=== PATIENT | male | born 1955 | race Caucasian/White ===

== ENCOUNTER 2023-08-08 10:06 | Inpatient (IN) ==
[2023-08-08 10:29] LABS: HEMATOCRIT 39.1 % (42.0-52.0); IMMATURE GRANULOCYTE # (AUTO) 0.2 (0.0-1.0); IMMATURE GRANULOCYTE % (AUTO) 0.8 % (0.0-5.0); LYMPHOCYTES # (AUTO) 0.6 K/uL (0.60-3.4); LYMPHOCYTES % (AUTO) 2.8 (10.0-50.0); MEAN CORPUSCULAR HGB CONC 33.2 (31.8-35.4); MEAN CORPUSCULAR VOLUME 90.3 fl (80.0-94.0); MONOCYTES % (AUTO) 4.6 (0-10); NEUTROPHILS # (AUTO) 19.2 K/ul (2.0-6.9); NEUTROPHILS % (AUTO) 91.8 % (42.2-75.2); PLATELET COUNT 195 10^3/uL (140-440); RDW COEFFICIENT OF VARIATION 14.3 % (11.6-14.8); RED BLOOD COUNT 4.33 10^6/ul (4.70-6.10); WHITE BLOOD COUNT 20.91 K/ul (4.2-10.2)
--- NOTE | 2023-08-08 10:33 | ED.PDOC ---
General ED Provider: Dr. KARLA YIN DO Chief Complaint: Weakness Stated Complaint: Patient is a 68 yo M here for family concern for stroke. Patient arrives tachycardic rate 105, with stable blood pressure 136/77 Accucheck 191 Last known normal 48 hours ago. and son report father had 3 vessel cardiac bypass and BL [facility] [place], Since then he has been less active physically and mentally He can usually perform ADLS well 2 days ago he was speaking to people at [employer] and not making sense, yesterday her was driving on the wrong side of the road, he drive to their house on the grass instead of using the driveway. No falls or injuries No new medications He is on dual antipaltelet, no anticoagulation No sick contacts They report he has been complaining or trouble peeing and has a cough He is a non smoker Patient alert and oriented x4 Following commands, holding conversation well, GCS 15 Family reports they would ad brought him sooner but patient was stubborn and declined Patient convinced to come in because today he felt too weak to get out of bed We helped patient into the bed he was able to pivot well. Time Seen by Provider: 08/08/23 10:10 Information Source: Patient Primary Care Provider: IGNACIA TOVAR Nursing and Triage Documentation Reviewed and Agree: Yes What is Opioid Naive?: *Opioid Naive implies the patient is not already taking opioids or not chronically receiving opioids on a daily basis. *PRN dosing is not "usually" associated with tolerance. *Patients are at higher risk of over-sedation and aspiration. What is Opioid Tolerant?: *Opioid Tolerance implies less than the expected response to an opioid. *Acquired tolerance is defined by the patient taking 60mg of oral morphine daily (or equianalgesic dose of another opioid) for 1 week or more. *Often associated with chronic pain. *May take more than usual dose to achieve desired pain control. Review of Systems Review Of Systems Constitutional: Reports Weakness; Denies Chills or Fever Eyes: Denies Blindness or Vision change Ears, Nose, Mouth, Throat: Denies Ear pain, Nose pain or Throat pain Respiratory: Reports Cough; Denies Stridor or Wheezing Cardiac: Denies Palpitations or Syncope GI: Denies Constipated or Diarrhea : Denies Burning or Discharge Musculoskeletal: Denies Back pain or Muscle pain Skin: Denies Bruising or Rash Neurological: Reports Weakness; Denies Anxiety, Depressed, Headache, Numbness or Tingling Endocrine: Reports No symptoms Hematologic/Lymphatic: Reports No symptoms All Other Systems: Reviewed and Negative Physical Exam Physical Exam Appearance: Reports Well-appearing and Well-nourished Ill-appearing: Not Applicable Pain Distress: Not Applicable Eyes: Reports HELDER and EOMI ENT: Reports Ears normal, Nose normal and Oropharynx normal Neck: Supple Respiratory: Reports Airway patent and Breath sounds clear; Denies Crackles or Rhonchi Cardiovascular: Reports RRR and Pulses normal GI/: Reports Soft and Nontender Musculoskeletal: Reports Normal strength and ROM intact Skin: Reports Warm and Dry Neurological: Reports Sensation intact, Motor intact, Cranial nerves intact, Alert and Oriented; Denies CN Palsy Psychiatric: Reports Affect appropriate and Mood appropriate Interpretation EKG Interpretation EKG Interpretation By: ED Physician Time of EKG #1: 11:20 Interpretation: Sinus tachycardai rate 106 no stemi qrs wnl Course Course 08/08/23 10:15 08/08/23 10:15 Orders, Labs, Meds: Lab Review 08/08/23 08/08/23 08/08/23 10:15 10:35 10:48 WBC 20.91 H RBC 4.33 L Hgb 13.0 L Hct 39.1 L MCV 90.3 MCH 30.0 MCHC 33.2 RDW Coeff of Caroline 14.3 Plt Count 195 Immature Gran % (Auto) 0.8 Neut % (Auto) 91.8 H Lymph % (Auto) 2.8 L Buchanan % (Auto) 4.6 Eos % (Auto) 0.0 Baso % (Auto) 0.0 Neut # (Auto) 19.2 H Lymph # (Auto) 0.6 Buchanan # (Auto) 1.0 Eos # (Auto) 0.0 Baso # (Auto) 0.0 Immature Gran # (Auto) 0.2 Puncture Site Rrad Base Excess -1.8 O2 Saturation 95.5 ABG pH 7.53 H* ABG pCO2 25.0 L ABG pO2 69.0 L ABG HCO3 20.9 L ABG Total CO2 21.7 Neri Test Pos Hemoglobin 1.4 Oxyhemoglobin 93.5 L Carboxyhemoglobin 2.2 H Total Hemoglobin 12.5 FiO2 % 21.0 Sodium 132.2 L Potassium 3.76 Chloride 97.5 L Carbon Dioxide 21.3 L Anion Gap 17.16 BUN 17.3 Creatinine 1.04 Estimated GFR (MDRD) 71.00 BUN/Creatinine Ratio 16.63 Glucose 190.3 H Lactic Acid 2.96 H Calcium 9.31 Magnesium 1.76 Total Bilirubin 1.38 H AST 30.7 ALT 21.5 Alkaline Phosphatase 115.2 Troponin I 0.035 Total Protein 8.20 Albumin 4.34 Globulin 3.86 Albumin/Globulin Ratio 1.12 Lipase 134.9 Procalcitonin 0.38 H Urine Color Yellow Urine Clarity Clear Urine pH 6.5 Ur Specific [place] 1.025 Urine Protein 3+ H Urine Glucose (UA) Negative Urine Ketones 1+ H Urine Blood Negative Urine Nitrite Negative Urine Bilirubin Negative Urine Urobilinogen >=8.0 Ur Leukocyte Esterase Negative Urine Microscopic RBC 2-5 Urine Microscopic WBC 0-2 Ur Squamous Epith Cells Not present Urine Bacteria Trace Fine Granular Casts 0-2 Urine Mucus 4+ Urine Opiates Screen Negative Ur Oxycodone Screen Negative Urine Methadone Screen Negative Ur Barbiturates Screen Negative U Tricyclic Antidepress Negative Ur Phencyclidine Scrn Negative Ur Amphetamine Screen Negative U Methamphetamines Scrn Negative U Benzodiazepines Scrn Negative Urine Cocaine Screen Negative U Cannabinoids Screen Negative Acetone, Qual None Influ A Molecular Assay Negative by naat Influ B Molecular Assay Negative by naat RSV Antigen Negative by naat SARS CoV-2 RNA Rapid LUPIS Negative 08/08/23 11:53 WBC RBC Hgb Hct MCV MCH MCHC RDW Coeff of Caroline Plt Count Immature Gran % (Auto) Neut % (Auto) Lymph % (Auto) Buchanan % (Auto) Eos % (Auto) Baso % (Auto) Neut # (Auto) Lymph # (Auto) Buchanan # (Auto) Eos # (Auto) Baso # (Auto) Immature Gran # (Auto) Puncture Site Base Excess O2 Saturation ABG pH ABG pCO2 ABG pO2 ABG HCO3 ABG Total CO2 Neri Test Hemoglobin Oxyhemoglobin Carboxyhemoglobin Total Hemoglobin FiO2 % Sodium Potassium Chloride Carbon Dioxide Anion Gap BUN Creatinine Estimated GFR (MDRD) BUN/Creatinine Ratio Glucose Lactic Acid Calcium Magnesium Total Bilirubin AST ALT Alkaline Phosphatase Troponin I 0.041 Total Protein Albumin Globulin Albumin/Globulin Ratio Lipase Procalcitonin Urine Color Urine Clarity Urine pH Ur Specific [place] Urine Protein Urine Glucose (UA) Urine Ketones Urine Blood Urine Nitrite Urine Bilirubin Urine Urobilinogen Ur Leukocyte Esterase Urine Microscopic RBC Urine Microscopic WBC Ur Squamous Epith Cells Urine Bacteria Fine Granular Casts Urine Mucus Urine Opiates Screen Ur Oxycodone Screen Urine Methadone Screen Ur Barbiturates Screen U Tricyclic Antidepress Ur Phencyclidine Scrn Ur Amphetamine Screen U Methamphetamines Scrn U Benzodiazepines Scrn Urine Cocaine Screen U Cannabinoids Screen Acetone, Qual Influ A Molecular Assay Influ B Molecular Assay RSV Antigen SARS CoV-2 RNA Rapid LUPIS Orders Category Date Time Status ADMIT PATIENT INPATIENT .TO [facility] (MONITORED BED) ADMISSION 08/08/23 12:31 Completed ABG DRAW REQUEST Stat CARDIO 08/08/23 10:45 Completed EKG-(ED ONLY) Stat CARDIO 08/08/23 10:17 Completed BLADDER SCAN ONCE CARE 08/08/23 10:17 Active NPO REMINDER: IMAGING ONCE CARE 08/08/23 10:16 Completed NPO REMINDER: IMAGING ONCE CARE 08/08/23 10:17 Completed TELEMETRY MONITORING TELE CARE 08/08/23 12:31 Active ABG COOX Stat LAB 08/08/23 10:48 Completed ACETONE, QUALITATIVE Stat LAB 08/08/23 10:15 Completed BLOOD CULTURE Stat LAB 08/08/23 13:32 Received CBC W/ AUTO DIFF Stat LAB 08/08/23 10:15 Completed COMPREHENSIVE METABOLIC PANEL Stat LAB 08/08/23 10:15 Completed DRUG SCREEN (RAPID FOR ED) [DRUG SCREEN, URINE, RAPID] LAB 08/08/23 10:35 Completed Stat FLU A & B MOLECULAR [FLU A/B MOLECULAR] Stat LAB 08/08/23 10:35 Completed LACTIC ACID Stat LAB 08/08/23 10:48 Completed LACTIC ACID Stat LAB 08/08/23 13:32 Received LIPASE Stat LAB 08/08/23 10:15 Completed MAGNESIUM Stat LAB 08/08/23 10:15 Completed PROCALCITONIN Stat LAB 08/08/23 10:15 Completed RSV Stat LAB 08/08/23 10:35 Completed SARS COV-2 RNA RAPID LUPIS Stat LAB 08/08/23 10:35 Completed TROPONIN I Stat LAB 08/08/23 10:15 Completed TROPONIN I Stat LAB 08/08/23 11:53 Completed URINALYSIS C & S IF INDICATED Stat LAB 08/08/23 10:35 Completed Ceftriaxone/D5w 2 gm Premix [Rocephin 2 gm/50 ml D5w] Meds 08/08/23 11:19 Discontinued 2 gm in 50 ml IV ONCE Doxycycline Hyclate Inj [Doxy-100] 100 mg Meds 08/08/23 11:19 Discontinued 0.9 % Sodium Chloride [Sodium Chloride 100Ml] 100 ml IV ONCE Sodium Chloride 0.9% [Sodium Chloride] 1,000 ml Meds 08/08/23 11:[address] CHEST W/CONTRAST Stat RADS 08/08/23 10:[address] HEAD W/O CONTRAST Stat RADS 08/08/23 10:16 Completed CTA ANGIO HEAD Stat RADS 08/08/23 10:16 Completed CTA ANGIO NECK Stat RADS 08/08/23 10:16 Completed Medications Generic Name Dose Route Start Last Admin Trade Name Freq PRN Reason Stop Dose Admin Acetaminophen 650 mg 08/08/23 12:46 Acetaminophen 325 Mg Tablet PO Q4H PRN Mild Pain Albuterol/Ipratropium 3 ml 08/08/23 12:58 Ipratropium/Albuterol Vial.Neb NEB RTQ6H PRN Wheezing Enoxaparin Sodium 40 mg 08/09/23 09:00 Enoxaparin Sodium 40 Mg/0.4 Ml Syr SUBCUT DAILY KELLI Doxycycline Hyclate 100 mg/ 100 mls @ 50 mls/hr 08/08/23 21:00 Sodium Chloride IV 08/11/23 20:59 Q12HR KELLI CEFTRIAXONE/D5W 1 GM PREMIX 1 gm in 50 mls @ 100 mls/hr 08/09/23 09:00 Rocephin 1 Gm/50 Ml D5w IV 08/12/23 08:59 DAILY KELLI Lactated Ringer's 1,000 mls @ 1,000 mls/hr 08/08/23 12:55 Lactated Ringers IV 08/08/23 13:54 BOLUS ONE Lactated Ringer's 1,000 mls @ 500 mls/hr 08/08/23 12:55 Lactated Ringers IV 08/08/23 14:54 BOLUS ONE Lactated Ringer's 1,000 mls @ 83 mls/hr 08/08/23 13:00 Lactated Ringers IV .Q12H3M KELLI Insulin Human Lispro 0 unit 08/08/23 12:46 Insulin Lispro 100 Unit/Ml Vial SUBCUT PRN PRN Hyperglycemia Protocol Discontinued Medications Generic Name Dose Route Start Last Admin Trade Name Freq PRN Reason Stop Dose Admin Sodium Chloride 1,000 mls @ 1,000 mls/hr 08/08/23 11:19 08/08/23 11:46 Sodium Chloride IV 08/08/23 12:18 1,000 mls/hr BOLUS ONE Administration CEFTRIAXONE/D5W 2 GM PREMIX 2 gm in 50 mls @ 100 mls/hr 08/08/23 11:19 08/08/23 11:53 Rocephin 2 Gm/50 Ml D5w IV 08/08/23 11:48 100 mls/hr ONCE ONE Administration Doxycycline Hyclate 100 mg/ 100 mls @ 50 mls/hr 08/08/23 11:19 08/08/23 12:41 Sodium Chloride IV 08/08/23 13:18 50 mls/hr ONCE ONE Administration Lactated Ringer's 1,000 mls @ 100 mls/hr 08/08/23 13:00 Lactated Ringers IV .Q10H KELLI Vital Signs: Temp Pulse Resp BP Pulse Ox 08/08/23 10:07 98.2 F 106 H 18 155/80 H 93 L Patient meets sepsis criteria with tachycardia and leukocytosis gentle fluids due to tachycardai and hypoxia, sepsis bundle ordered ABG shows respiratory alkalosis, chronic MDM: Patient is a 68 yo M here for weakness, cough and family concern for stroke Patient afebrile, mildly hypoxic - improved with 2 L NC, stable blood pressure Hx from patient and family chart review by me Exam reassuring, GCS 15, NIHSS zero Consults to SHILO Gutierrez Hospitalist 3+ labs and 3+ images reviewed by me WDX: Sepsis, LLL pneumonia, cough, hypoxia discomfort acute high complexity DDX: I considered shock, stemi, ICH but these are less likely SDOH: Patient has PCP and family support Patient and family agree to admission All questions answered Patient admitted stable Gentle fluids for sepsis/hypoxia and concner to avoid pulmonary edema Discharge Plan Discharge Patient Disposition: ADMITTED INPATIENT Discharge Problem: Cough, Hypoxia, Sepsis, Left lower lobe pneumonia Did you review [place] [employer] for ALL controlled substances?: Not Applicable ED Provider: KARLA YIN Condition: Stable Physician Progress Note: []
[2023-08-08 10:41] LABS: ALANINE AMINOTRANSFERASE 21.5 U/L (0-50); ALBUMIN 4.34 g/dL (3.5-5.0); ALKALINE PHOSPHATASE 115.2 U/L (56-119); ASPARTATE AMINO TRANSFERASE 30.7 U/L (17-59); BILIRUBIN,TOTAL 1.38 mg/dL (0.2-1.3); BLOOD UREA NITROGEN 17.3 mg/dL (9-20); CALCIUM 9.31 mg/dL (8.4-10.2); CARBON DIOXIDE 21.3 mmol/L (22-30.0); CHLORIDE 97.5 mmol/L (98-107); CREATININE 1.04 mg/dL (0.60-1.10); GLUCOSE 190.3 mg/dL (74-106); LIPASE 134.9 U/L (23-300); MAGNESIUM 1.76 mg/dL (1.6-2.3); POTASSIUM 3.76 mmol/L (3.5-5.1); SODIUM 132.2 mmol/L (134.5-145); TOTAL PROTEIN 8.2 g/dL (6.3-8.2)
--- NOTE | 2023-08-08 10:45 | CT ---
EXAM: BRAIN CT WITHOUT CONTRAST 08/08/2023 INDICATION: Stroke like symptoms. COMPARISON: None. TECHNIQUE: Unenhanced CT of the head was performed from the skull base to the vertex. FINDINGS: No intracranial hemorrhage or extra-axial collection. No mass, mass effect or midline shift. The mock -white matter differentiation is preserved. There are patchy subcortical and periventricular white ma tter hypodensities, most commonly seen in chronic white matter microvascular ischemic changes. The v entricles are normal in size. The basal cisterns are patent. Moderate mucosal membrane thickening t hroughout the paranasal sinuses with the exception of the frontal sinuses. The orbits are unremarkabl e. The visualized osseous structures are unremarkable. IMPRESSION: - No acute intracranial hemorrhage or mass effect. MRI can be obtained for further evaluation as clin ically indicated. - Sinus disease as above. - Senescent changes. All CT scans are performed using dose optimization techniques as appropriate to the performed exam an d include at least one of the following: Automated exposure control, adjustment of the mA and/or kV according t o size, and the use of iterative reconstruction technique.
[2023-08-08 10:52] LABS: TROPONIN I 0.035 ng/ml (0.0000-0.120)
[2023-08-08 11:02] LABS: ABG O2 HGB 93.5 % (95-100); BEecf -1.8 (-2.0-3.0); COHb 2.2 (0.5-1.5); HCO3 20.9 (21-28); MetHb 1.4 (0-1.5); TCO2 21.7 (19-24); sO2 95.5 % (94-98); tHb 12.5 g/dl (11.7-17.4)
[2023-08-08 11:03] LABS: BILIRUBIN,URINE Negative (NEGATIVE); CLARITY,URINE Clear (CLEAR); COLOR,URINE Yellow (YELLOW); GLUCOSE, URINE (UA) Negative (NEGATIVE); KETONES,URINE 1+ (NEGATIVE); LEUKOCYTE ESTERASE ,URINE Negative (NEGATIVE); NITRITE,URINE Negative (NEGATIVE); PH,URINE 6.5 (5-9); PROTEIN,URINE 3+ (NEGATIVE); URINE, BLOOD Negative (NEGATIVE); UROBILINOGEN,URINE >=8.0 (0.2)
[2023-08-08 11:09] LABS: SQUAMOUS EPITHELIAL CELL,UR NOT PRESENT (0-5)
[2023-08-08] MEDS ORDERED: ROCEPHIN 2 GM/50 ML D5W 2 GM/50 ML BAG IV ONE (11:19)
[2023-08-08] MEDS ORDERED: DOXY-100 100 MG in SODIUM CHLORIDE 100ML 100 ML IV ONE (11:19)
[2023-08-08] MEDS ORDERED: SODIUM CHLORIDE 1,000 ML IV ONE (11:19)
[2023-08-08 11:21] LABS: BARBITURATE SCREEN,URINE NEGATIVE (NEGATIVE); OPIATE SCREEN,URINE NEGATIVE (NEGATIVE); PHENCYCLIDINE SCREEN,URINE NEGATIVE (NEGATIVE)
[2023-08-08 11:22] LABS: AMPHETAMINE SCREEN,URINE NEGATIVE (NEGATIVE); BENZODIAZEPINES SCREEN,URINE NEGATIVE (NEGATIVE); CANNABINOID SCREEN,URINE NEGATIVE (NEGATIVE); COCAIN SCREEN,URINE NEGATIVE (NEGATIVE); METHADONE URINE SCREEN NEGATIVE (NEGATIVE); METHAMPHETAMINES SCREEN,URINE NEGATIVE (NEGATIVE); MOLECULAR FLU A NEGATIVE BY NAAT (NEGATIVE); MOLECULAR FLU B NEGATIVE BY NAAT (NEGATIVE); OXYCODONE URINE SCREEN NEGATIVE (NEGATIVE); RSV MOLECULAR NEGATIVE BY NAAT (NEGATIVE); TRICYCLIC ANTIDEPRESSANTS URIN NEGATIVE (NEGATIVE)
[2023-08-08 11:33] LABS: ABG PH 7.53 (7.35-7.45)
[2023-08-08 11:34] LABS: BACTERIA,URINE TRACE (NOT PRESENT); FINE GRANULAR CASTS,URINE 0-2 (NOT PRESENT); URINE WBC, MICROSCOPIC 0-2 (0-2)
[2023-08-08 11:35] LABS: MUCUS,URINE 4+ (NOT PRESENT)
[2023-08-08 11:36] LABS: SARS COV-2 RNA RAPID NAAT NEGATIVE (NEGATIVE)
--- NOTE | 2023-08-08 12:03 | CT ---
EXAM: CTA HEAD WITHOUT/WITH CONTRAST HISTORY: Weakness, confusion, recent CABG and endarterectomy COMPARISON: None TECHNIQUE: Multi-slice pre and postcontrast transaxial helical images are acquired through the head according to an angiogram protocol. 3-D volume images are provided. All CT scans are performed usin g dose optimization techniques as appropriate to the performed exam and includes at least one of the following: Automated exposure control, adjustment of the mA and/or kV according to size, and the use of iterative reconstruction technique. CONTRAST: 100 mL Omnipaque-350 IV FINDINGS: The midline structures are central. The ventricles are neither dilated nor displaced. The brain att enuation with square white master interface is maintained. No acute intracranial or extra-axial hemo rrhage. There are air-fluid levels in the maxillary sinus. There is mucus membrane thickening throughout the paranasal sinuses. The mastoid air cells are clear. The internal carotid arteries are atherosclerotic at their cavernous portions without evidence of hem odynamically significant stenosis. The anterior cerebral arteries are widely patent. The anterior c ommunicating artery is patent. The middle cerebral arteries are patent bilaterally. No large vessel occlusion or hemodynamically significant stenosis. The right vertebral artery is small. The left v ertebral artery is dominant. The basilar artery is small in caliber but patent. Bilateral posterior communicating arteries are noted. The P1 segments of the posterior cerebral arteries are small. Th e P2 segments are patent. The venous structures enhance normally. IMPRESSION: - No large vessel occlusion, dissection or aneurysm. - Paranasal sinus disease. . All CT scans are performed using dose optimization techniques as appropriate to the performed exam an d include at least one of the following: Automated exposure control, adjustment of the mA and/or kV according t o size, and the use of iterative reconstruction technique.
--- NOTE | 2023-08-08 12:04 | CT ---
EXAM: CT CHEST WITH INTRAVENOUS CONTRAST 08/08/2023. SAGITTAL AND CORONAL REFORMATTED IMAGES OBTAINE D HISTORY: Cough and tachycardia COMPARISON: None. FINDINGS: The heart size appears within normal limits. There is abundance of small reactive appearin g mediastinal and left hilar lymph nodes. Consolidation is present throughout the dependent left lower lobe. Multi nodular infiltrate within t he superior aspect of the left lower lobe. This likely represents pneumonia. Mild right basilar ate lectasis. Right lung is otherwise well aerated. No pleural effusion. No pneumothorax. Limited views of the upper abdomen shows no acute abnormality . No acute osseous abnormality. IMPRESSION: Findings suggestive of left lower lobe pneumonia as described above. Abundance of small reactive appearing mediastinal and left hilar lymph nodes. Follow-up would be of benefit to document resolution. All CT scans are performed using dose optimization techniques as appropriate to the performed exam an d include at least one of the following: Automated exposure control, adjustment of the mA and/or kV according t o size, and the use of iterative reconstruction technique.
--- NOTE | 2023-08-08 12:07 | CT ---
EXAM: CTA NECK WITHOUT/WITH CONTRAST HISTORY: Stroke like symptoms COMPARISON: None TECHNIQUE: Multi-slice pre and postcontrast transaxial helical images are acquired through the neck according to an angiogram protocol. 3-D volume images are provided. All CT scans are performed usin g dose optimization techniques as appropriate to the performed exam and includes at least one of the following: Automated exposure control, adjustment of the mA and/or kV according to size, and the use of iterative reconstruction technique. CONTRAST: 100 mL Omnipaque-350 IV FINDINGS: Wire sternal sutures and post CABG changes are noted. The aortic arch has normal caliber and patency . The brachycephalic and subclavian arteries are patent. There is mild disease in the bilateral sub clavian arteries and brachycephalic artery. The bilateral common carotid arteries are widely patent. There are surgical clips in the bilateral carotid arteries. The internal carotid arteries are alvarez nt bilaterally. The left vertebral artery is dominant. Both vertebral arteries are patent without e vidence of hemodynamically significant stenosis. There are tree in bud infiltrates in the left lower lobe. The lungs are emphysematous. A calcified granuloma is noted in the left upper lobe. The thyroid has normal size and attenuation. The submand ibular glands and parotid glands have symmetric size and normal enhancement. No suspicious lymphaden opathy. The mucosa of the aerodigestive tract is symmetric. No suspicious osteolytic or osteoblastic bone lesions. No acute bony abnormalities are evident. IMPRESSION: - No large vessel occlusion or hemodynamically significant stenosis. - Bilateral carotid endarterectomies. - Left lower lobe pneumonia. - Emphysema. . All CT scans are performed using dose optimization techniques as appropriate to the performed exam an d include at least one of the following: Automated exposure control, adjustment of the mA and/or kV according t o size, and the use of iterative reconstruction technique.
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
[2023-08-08] MEDS ORDERED: TYLENOL PO PRN (12:46)
[2023-08-08] MEDS ORDERED: HUMALOG SUBCUT PRN (12:46)
[2023-08-08] MEDS ORDERED: LACTATED RINGERS 1,000 ML IV ONE ×2 (12:55)
[2023-08-08] MEDS ORDERED: DUONEB NEB PRN (12:58)
[2023-08-08] MEDS ORDERED: LACTATED RINGERS 1,000 ML IV SCH (13:00)
[2023-08-08 14:55] VITALS: BMI 30.1
[2023-08-08] MEDS ORDERED: NITROSTAT SL PRN (16:37)
[2023-08-08] MEDS: TIMOPTIC 0.5% OPTH EACHEYE SCH (20:03)
[2023-08-08] MEDS: DOXY-100 100 MG in SODIUM CHLORIDE 100ML 100 ML IV SCH (20:03)
[2023-08-08] MEDS: LOPRESSOR PO SCH (20:03)
[2023-08-08] MEDS: LACTATED RINGERS 1,000 ML IV SCH (20:19)
[2023-08-09 05:51] LABS: BASOPHILS % (AUTO) 0.1 % (0.0-3.0); EOSINOPHILS % (AUTO) 0.2 % (0.0-7.0); HEMATOCRIT 34.7 % (42.0-52.0); HEMOGLOBIN 11.5 g/dl (14.0-18.0); IMMATURE GRANULOCYTE # (AUTO) 0.1 (0.0-1.0); IMMATURE GRANULOCYTE % (AUTO) 0.5 % (0.0-5.0); LYMPHOCYTES # (AUTO) 0.9 K/uL (0.60-3.4); LYMPHOCYTES % (AUTO) 9.9 (10.0-50.0); MEAN CORPUSCULAR HEMOGLOBIN 29.9 pg (27.0-31.0); MEAN CORPUSCULAR HGB CONC 33.1 (31.8-35.4); MEAN CORPUSCULAR VOLUME 90.4 fl (80.0-94.0); MONOCYTES # (AUTO) 0.7 K/uL (0.4-2.0); MONOCYTES % (AUTO) 7.7 (0-10); NEUTROPHILS # (AUTO) 7.5 K/ul (2.0-6.9); NEUTROPHILS % (AUTO) 81.6 % (42.2-75.2); PLATELET COUNT 152 10^3/uL (140-440); RDW COEFFICIENT OF VARIATION 14.4 % (11.6-14.8); RED BLOOD COUNT 3.84 10^6/ul (4.70-6.10); WHITE BLOOD COUNT 9.23 K/ul (4.2-10.2)
[2023-08-09 06:09] LABS: ALANINE AMINOTRANSFERASE 17.5 U/L (0-50); ALBUMIN 3.33 g/dL (3.5-5.0); ALKALINE PHOSPHATASE 76.4 U/L (56-119); ASPARTATE AMINO TRANSFERASE 24.2 U/L (17-59); BILIRUBIN,TOTAL 0.71 mg/dL (0.2-1.3); BLOOD UREA NITROGEN 12.3 mg/dL (9-20); CALCIUM 8.47 mg/dL (8.4-10.2); CARBON DIOXIDE 25.1 mmol/L (22-30.0); CHLORIDE 102.7 mmol/L (98-107); CREATININE 0.79 mg/dL (0.60-1.10); GLUCOSE 118.8 mg/dL (74-106); POTASSIUM 3.2 mmol/L (3.5-5.1); SODIUM 135.2 mmol/L (134.5-145); TOTAL PROTEIN 6.63 g/dL (6.3-8.2)
[2023-08-09] MEDS: ROCEPHIN 1 GM/50 ML D5W 1 GM/50 ML BAG IV SCH (08:17)
[2023-08-09] MEDS: ASPIRIN EC PO SCH (08:18)
[2023-08-09] MEDS: LOVENOX SUBCUT SCH (08:18)
[2023-08-09] MEDS: LOPRESSOR PO SCH ×2 (08:18→20:10)
[2023-08-09] MEDS: LIPITOR PO SCH (08:18)
[2023-08-09] MEDS: PLAVIX PO SCH (08:18)
[2023-08-09] MEDS: TIMOPTIC 0.5% OPTH EACHEYE SCH ×3 (08:43→20:10)
[2023-08-09] MEDS ORDERED: XALATAN EACHEYE SCH (09:00)
[2023-08-09] MEDS: DOXY-100 100 MG in SODIUM CHLORIDE 100ML 100 ML IV SCH ×2 (09:30→20:10)
[2023-08-09] MEDS: LACTATED RINGERS 1,000 ML IV SCH (09:30)
--- NOTE | 2023-08-09 11:38 | PCM.PROG ---
Date/Time Seen Date Seen by Provider: 08/09/23 Time Seen by Provider: 08:30 Provider Provider: TAMMY MCKEON PA-C, [facility] Chief Complaint Chief Complaint: LLL PNA, SEPSIS Subjective Subjective: Son at bedside. Patient states he's feeling better. Still requiring oxygen. States he normally wears a CPAP at night. Has less sob with exertion today. Labs improving. Objective Appearance: Positive No Apparent Distress and Alert and Oriented x3 Chest/Lungs: Positive Clear to Auscultation Bilaterally; Negative Rales, Rhonci or Wheezes Heart: Positive RRR GI/: Positive Soft, Nontender, Bowel Sounds Normal and No Distention Neurological: Positive Cranial Nerves Intact, Alert, Oriented and Muscle Strength 5/5 in Upper and Lower Extremities Bilaterally Vital Signs Vital Signs: Vital Signs: Last 24 Hours 08/08/23 13:49 08/08/23 13:49 08/08/23 14:15 Temperature 99.9 F Temperature Source Oral Pulse Rate 104 H Respiratory Rate 22 H 22 H Blood Pressure Blood Pressure Mean Blood Pressure Right Arm 141/84 Blood Pressure Location Blood Pressure Position Supine O2 Sat by Pulse Oximetry 95 Oxygen Delivery Method Room Air Room Air Oxygen Flow Rate 95 Height 5 ft 5.5 in Weight 183 lb 14.4 oz Telemetry Type Remote Telemetry Telemetry Monitoring Started Telemetry Heart Rate 105 H Telemetry SPO2 96 EKG TX Interval 0.14 EKG QRS Interval 0.06 EKG QT Interval Telemetry Strip Reading SR/ST 08/08/23 15:07 08/08/23 18:00 08/08/23 19:00 Temperature 98.2 F Temperature Source Oral Pulse Rate 103 H Respiratory Rate 22 H Blood Pressure 154/79 H Blood Pressure Mean 104 Blood Pressure Right Arm Blood Pressure Location Right Arm Blood Pressure Position Supine O2 Sat by Pulse Oximetry 96 96 Oxygen Delivery Method Room Air Room Air Oxygen Flow Rate Height Weight Telemetry Type Remote Telemetry Telemetry Monitoring Continues Telemetry Heart Rate 99 Telemetry SPO2 97 EKG TX Interval 0.14 EKG QRS Interval 0.07 EKG QT Interval Telemetry Strip Reading SR 08/08/23 19:52 08/08/23 20:00 08/08/23 21:28 Temperature 98.7 F Temperature Source Oral Pulse Rate 89 Respiratory Rate 20 Blood Pressure 143/75 H Blood Pressure Mean 97 Blood Pressure Right Arm Blood Pressure Location Left Arm Blood Pressure Position Supine O2 Sat by Pulse Oximetry 97 95 Oxygen Delivery Method Room Air Room Air Room Air Oxygen Flow Rate Height Weight Telemetry Type Telemetry Monitoring Telemetry Heart Rate Telemetry SPO2 EKG TX Interval EKG QRS Interval EKG QT Interval Telemetry Strip Reading 08/09/23 01:00 08/09/23 05:08 08/09/23 05:23 Temperature 98.1 F Temperature Source Oral Pulse Rate 90 Respiratory Rate Blood Pressure 140/81 Blood Pressure Mean 100 Blood Pressure Right Arm Blood Pressure Location Right Arm Blood Pressure Position Supine O2 Sat by Pulse Oximetry 98 97 Oxygen Delivery Method Nasal Cannula Nasal Cannula Oxygen Flow Rate 2 2 Height Weight Telemetry Type Remote Telemetry Telemetry Monitoring Continues Telemetry Heart Rate 92 Telemetry SPO2 97 EKG TX Interval 0.15 EKG QRS Interval EKG QT Interval 0.08 L Telemetry Strip Reading NSR 08/09/23 07:00 08/09/23 07:37 08/09/23 09:55 Temperature Temperature Source Pulse Rate Respiratory Rate Blood Pressure Blood Pressure Mean Blood Pressure Right Arm Blood Pressure Location Blood Pressure Position O2 Sat by Pulse Oximetry 98 Oxygen Delivery Method Nasal Cannula Oxygen Flow Rate 2 Height 5 ft 5.5 in Weight 183 lb Telemetry Type Remote Telemetry Telemetry Monitoring Continues Telemetry Heart Rate 81 Telemetry SPO2 EKG TX Interval EKG QRS Interval EKG QT Interval Telemetry Strip Reading sr 08/09/23 10:15 Temperature Temperature Source Pulse Rate Respiratory Rate Blood Pressure Blood Pressure Mean Blood Pressure Right Arm Blood Pressure Location Blood Pressure Position O2 Sat by Pulse Oximetry 97 Oxygen Delivery Method Nasal Cannula Oxygen Flow Rate 1 Height Weight Telemetry Type Telemetry Monitoring Telemetry Heart Rate Telemetry SPO2 EKG TX Interval EKG QRS Interval EKG QT Interval Telemetry Strip Reading Lab Results Lab Results: Lab Results: Last 24 Hours 08/09/23 08/08/23 08/08/23 05:29 13:32 11:53 WBC 9.23 D RBC 3.84 L Hgb 11.5 L Hct 34.7 L MCV 90.4 MCH 29.9 MCHC 33.1 RDW Coeff of Caroline 14.4 Plt Count 152 Immature Gran % (Auto) 0.5 Neut % (Auto) 81.6 H Lymph % (Auto) 9.9 L [place] % (Auto) 7.7 Eos % (Auto) 0.2 Baso % (Auto) 0.1 Neut # (Auto) 7.5 H Lymph # (Auto) 0.9 [place] # (Auto) 0.7 Eos # (Auto) 0.0 Baso # (Auto) 0.0 Immature Gran # (Auto) 0.1 Sodium 135.2 Potassium 3.20 L Chloride 102.7 Carbon Dioxide 25.1 Anion Gap 10.60 BUN 12.3 Creatinine 0.79 Estimated GFR (MDRD) 97.00 BUN/Creatinine Ratio 15.56 Glucose 118.8 H D Lactic Acid 1.80 Calcium 8.47 Total Bilirubin 0.71 AST 24.2 ALT 17.5 Alkaline Phosphatase 76.4 D Troponin I 0.041 Total Protein 6.63 Albumin 3.33 L Globulin 3.30 Albumin/Globulin Ratio 1.00 Procalcitonin 0.32 H SARS CoV-2 RNA Rapid LUPIS 08/08/23 08/08/23 10:35 10:15 WBC RBC Hgb Hct MCV MCH MCHC RDW Coeff of Caroline Plt Count Immature Gran % (Auto) Neut % (Auto) Lymph % (Auto) [place] % (Auto) Eos % (Auto) Baso % (Auto) Neut # (Auto) Lymph # (Auto) [place] # (Auto) Eos # (Auto) Baso # (Auto) Immature Gran # (Auto) Sodium Potassium Chloride Carbon Dioxide Anion Gap BUN Creatinine Estimated GFR (MDRD) BUN/Creatinine Ratio Glucose Lactic Acid Calcium Total Bilirubin AST ALT Alkaline Phosphatase Troponin I Total Protein Albumin Globulin Albumin/Globulin Ratio Procalcitonin 0.38 H SARS CoV-2 RNA Rapid LUPIS Negative Additional Comments Additional Comments: I have independently reviewed and interpreted the labs/EKGs/imaging ordered during this hospital stay. I have reviewed outside records that are available in our EMR that pertain to medical stay including imaging/notes/labs from previous visits. Active Medications Active Medications: Medications Generic Name Dose Route Start Last Admin Trade Name Freq PRN Reason Stop Dose Admin Acetaminophen 650 mg 08/08/23 12:46 Acetaminophen 325 Mg Tablet PO Q4H PRN Mild Pain Albuterol/Ipratropium 3 ml 08/08/23 12:58 Ipratropium/Albuterol Vial.Neb NEB RTQ6H PRN Wheezing Aspirin 81 mg 08/09/23 07:30 08/09/23 08:18 Aspirin 81 Mg Tablet. PO 81 mg DAILYWM2 KELLI Administration Atorvastatin Calcium 40 mg 08/09/23 09:00 08/09/23 08:18 Atorvastatin Calcium 20 Mg Tablet PO 40 mg DAILY KELLI Administration Clopidogrel Bisulfate 75 mg 08/09/23 09:00 08/09/23 08:18 Clopidogrel Bisulfate 75 Mg Tablet PO 75 mg DAILY KELLI Administration Enoxaparin Sodium 40 mg 08/09/23 09:00 08/09/23 08:18 Enoxaparin Sodium 40 Mg/0.4 Ml Syr SUBCUT 40 mg DAILY KELLI Administration Doxycycline Hyclate 100 mg/ 100 mls @ 50 mls/hr 08/08/23 21:00 08/09/23 09:30 Sodium Chloride IV 08/11/23 20:59 50 mls/hr Q12HR KELLI Administration CEFTRIAXONE/D5W 1 GM PREMIX 1 gm in 50 mls @ 100 mls/hr 08/09/23 09:00 08/09/23 08:17 Rocephin 1 Gm/50 Ml D5w IV 08/12/23 08:59 100 mls/hr DAILY KELLI Administration Lactated Ringer's 1,000 mls @ 83 mls/hr 08/08/23 13:00 08/09/23 09:30 Lactated Ringers IV 83 mls/hr .Q12H3M KELLI Administration Insulin Human Lispro 0 unit 08/08/23 12:46 Insulin Lispro 100 Unit/Ml Vial SUBCUT PRN PRN Hyperglycemia Protocol Latanoprost 1 drop 08/10/23 21:00 Latanoprost 2.5 Ml Opth Marissa EACHEYE BEDTIME [facility] Metoprolol Tartrate 50 mg 08/08/23 21:00 08/09/23 08:18 Metoprolol Tartrate 50 Mg Tablet PO 50 mg BID KELLI Administration Nitroglycerin 0.4 mg 08/08/23 16:37 Nitroglycerin 0.4 Mg Tab.Subl SL Q5M PRN Chest Pain Timolol Maleate 1 drop 08/08/23 21:00 08/09/23 08:43 Timolol Maleate 5 Ml Opth Marissa EACHEYE Not Given BID [facility] Plan Plan: 1. Acute metabolic encephalopathy in setting of LLL pneumonia - Improved. Cont abx, stop fluids, tylenol prn for pain/fever. CT head and CTA head/neck negative. 2. Left sided pneumonia, community acquired - Rocephin + doxy. Duonebs. O2 prn. Strep pneumo and legionella pending. MRSA pending. 3. Sepsis in setting of pneumonia - Labs improved. BC pending. Trend procal. Cont abx. 4. CAD s/p CABG - No hx of HF. Cont home meds. Monitor for fluid overload. 5. DMT2 - Hold metformin. Humalog SS ordered. Diabetic diet. 6. Hyperlipidemia - Cont home meds 7. Glaucoma - Cont home eye drops 8. Hypokalemia - Replaced 9. LINDA - Sleeps with CPAP at night. Notified RT to provide CPAP if cannot bring his in. DVT Prophylaxis: Lovenox Dispo: Poss dc tomorrow. Review Statement Review Statement: I have personally discussed and reviewed the patient's visit/currently labs/imaging/decision making with Dr. Cantrell, my supervising attending. Greater that 50 minutes spent with patient, 50% of the time spent with this patient was devoted to counseling and coordination of care.
[2023-08-09] MEDS ORDERED: K-DUR PO ONE (13:18)
[2023-08-10 05:14] VITALS: BP 139/87; PULSE 87; TEMP 98
[2023-08-10 05:59] LABS: BASOPHILS % (AUTO) 0.2 % (0.0-3.0); EOSINOPHILS # (AUTO) 0.1 K/ul (0.0-0.7); EOSINOPHILS % (AUTO) 1.2 % (0.0-7.0); HEMATOCRIT 35.2 % (42.0-52.0); HEMOGLOBIN 11.5 g/dl (14.0-18.0); IMMATURE GRANULOCYTE % (AUTO) 0.3 % (0.0-5.0); LYMPHOCYTES # (AUTO) 1.3 K/uL (0.60-3.4); LYMPHOCYTES % (AUTO) 14.6 (10.0-50.0); MEAN CORPUSCULAR HGB CONC 32.7 (31.8-35.4); MEAN CORPUSCULAR VOLUME 91.9 fl (80.0-94.0); MONOCYTES # (AUTO) 0.7 K/uL (0.4-2.0); MONOCYTES % (AUTO) 7.5 (0-10); NEUTROPHILS # (AUTO) 6.6 K/ul (2.0-6.9); NEUTROPHILS % (AUTO) 76.2 % (42.2-75.2); PLATELET COUNT 161 10^3/uL (140-440); RDW COEFFICIENT OF VARIATION 13.9 % (11.6-14.8); RED BLOOD COUNT 3.83 10^6/ul (4.70-6.10); WHITE BLOOD COUNT 8.67 K/ul (4.2-10.2)
[2023-08-10 06:13] LABS: ALANINE AMINOTRANSFERASE 42.2 U/L (0-50); ALBUMIN 3.43 g/dL (3.5-5.0); BILIRUBIN,TOTAL 0.65 mg/dL (0.2-1.3); BLOOD UREA NITROGEN 12.5 mg/dL (9-20); CALCIUM 8.67 mg/dL (8.4-10.2); CARBON DIOXIDE 23.5 mmol/L (22-30.0); CHLORIDE 103.6 mmol/L (98-107); CREATININE 0.76 mg/dL (0.60-1.10); GLUCOSE 135.4 mg/dL (74-106); POTASSIUM 3.64 mmol/L (3.5-5.1); SODIUM 135.3 mmol/L (134.5-145); TOTAL PROTEIN 6.81 g/dL (6.3-8.2)
[2023-08-10 07:40] VITALS: RESP 16
[2023-08-10] MEDS: PLAVIX PO SCH (08:23)
[2023-08-10] MEDS: LOPRESSOR PO SCH (08:23)
[2023-08-10] MEDS: ASPIRIN EC PO SCH (08:24)
[2023-08-10] MEDS: LIPITOR PO SCH (08:24)
[2023-08-10] MEDS: ROCEPHIN 1 GM/50 ML D5W 1 GM/50 ML BAG IV SCH ×2 (08:27→09:06)
[2023-08-10] MEDS: LOVENOX SUBCUT SCH (08:38)
[2023-08-10] MEDS: DOXY-100 100 MG in SODIUM CHLORIDE 100ML 100 ML IV SCH (08:49)
[2023-08-10] MEDS: TIMOPTIC 0.5% OPTH EACHEYE SCH (09:08)
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
[2023-08-10] MEDS ORDERED: XALATAN EACHEYE SCH (21:00)
== END 2023-08-10 10:21 | disposition home or self-care (01) | DRG 871 ==
LOC: ED 10:06 → MEDSURG B 12:32
PROVIDERS: ADMIT Hospitalist; ATTEND Physician Assistant
DX: I25.810 Atherosclerosis of coronary artery bypass graft(s) without angina pectoris; E78.5 Hyperlipidemia, unspecified; G93.41 Metabolic encephalopathy; Z20.822 Contact with and (suspected) exposure to COVID-19; E87.3 Alkalosis; E87.6 Hypokalemia; H40.9 Unspecified glaucoma; R09.02 Hypoxemia; G47.33 Obstructive sleep apnea (adult) (pediatric); E11.65 Type 2 diabetes mellitus with hyperglycemia; Z79.4 Long term (current) use of insulin; R05.1 Acute cough; A41.9 Sepsis, unspecified organism; J18.1 Lobar pneumonia, unspecified organism